=== PATIENT | male | born 1960 | race Caucasian/White ===

== ENCOUNTER 2022-01-18 06:11 | Day surgery (SDC) | payer BC, SELFPAY ==
[2022-01-18] VITALS (13 sets, daily range): BP systolic 113–142; BP diastolic 57–89; PULSE 67–83; RESP 14–16; TEMP 36.4–36.6; O2SAT 96–99; BMI 24.5
[2022-01-18] MEDS: SODIUM CHLORIDE 0.9 % (FLUSH) 10 ML SYRINGE IVF (06:44)
[2022-01-18] MEDS: LACTATED RINGERS 1000 ML 1,000 ML 100 ML IV ×2 (06:45→08:20)
[2022-01-18] MEDS: CEFAZOLIN 2 GM INJ IVP (07:40)
[2022-01-18] MEDS: BUPIVACAINE 0.25% 30 ML INJECTION (08:35)
--- NOTE | 2022-01-18 08:54 | P.GSOP_ITS ---
Operative Note Date of procedure: 01/18/22 Type of Procedure: 1. Laparoscopic bilateral inguinal hernia repair with mesh. Procedure Description: After discussing the risks and benefits of the procedure, the patient signed informed consent.? The operative site was marked and the patient was brought to the operating room and placed on the operating table in supine position.? Care was taken to pad the patient's pressure points.?? The patient was then intubated by anesthesia.?? The operative site was then prepped and draped in the usual sterile fashion.? A time-out was then performed. An infraumbilical skin incision was made with a scalpel and subcutaneous tissues were dissected with electrocautery. Anterior sheath was incised with electrocautery and rectus muscle was retracted laterally. A 12 mm [employer] dissector system was introduced into the incision and advanced over the posterior sheath. Preperitoneal space was dissected with manually insufflating air under direct visualization. Once the tissues were dissected, the balloon was deflated and removed.? A laparoscopic balloon was placed into preperitoneal space and balloon was inflated. Preperitoneal space was insufflated with air. No bleeding was identified upon examination of preperitoneal space. We then placed two 5 mm ports suprapubically under direct visualization. ? The preperitoneal tissues were bluntly dissected with graspers.? The pubic bone was identified and? cleared from preperitoneal tissue.?? Inferior epigastrics on right?side were retracted towards the abdominal wall.?? Spermatic cord? was identified and dissected circumferentially.? This was done bluntly. The direct inguinal hernia space was identified. The peritoneal edge was noted to be adjacent to the right spermatic cord with evidence of right indirect inguinal hernia. The indirect hernia sac was dissected bluntly from the spermatic cord.? Arterial bleeding was noted on the right side at the inferior edge of the pubic bone. This was controlled with cautery.? When adequate space was developed for mesh placement, we proceeded with dissection left side. A direct left inguinal hernia space was noted. Peritoneum on the left side was adjacent to the spermatic cord and was going into the inguinal canal. This peritoneal edge was then dissected bluntly away from the spermatic cord. Spermatic cord was dissected circumferentially. When adequate space for mesh placement was developed on the left side, a Dextile mesh was used and positioned over the spermatic cord. The mesh was tacked medially and laterally with?tacks.? A right-sided Parietex mesh was then used for repair on the right side. The mesh was positioned around the right spermatic cord. This was tacked with tacks medially and laterally. Additional local anesthetic was injected directly into pre-peritoneal space. ? The space was deflated under direct visualization and mesh appeared to be still lying in a good position. The ports were then removed. Anterior sheath was then closed with a running 0-0 vicryl suture. Skin was closed with 4-0 monocryl using subcuticular stitch. Steri strips were applied over the laparoscopic?incisions. ? All counts were correct at the end of the case. Patient tolerated the procedure well and was transferred to PACU without any complications. ? Findings: Indirect and direct hernia on the right and the left. Implants: Dextile mesh on the left, Parietex mesh on the right. Anesthesia: GETA Surgeon: Chapin Stubbs MD Estimated blood loss (mL): 5 Condition: stable Disposition: PACU
--- NOTE | 2022-01-18 09:05 | W.ANESCHARGE ---
Anesthesia Charges Start Date/Time Anesthesia Start Date: 01/18/22 Anesthesia Start Time: 07:30 Stop Date/Time Anesthesia Stop Date: 01/18/22 Anesthesia Stop Time: 09:01 Summary Emergency: No
--- NOTE | 2022-01-18 09:33 | W.ANESCHARGE ---
Anesthesia Charges Start Date/Time Anesthesia Start Date: 01/18/22 Anesthesia Start Time: 07:30 Stop Date/Time Anesthesia Stop Date: 01/18/22 Anesthesia Stop Time: 09:01 Summary Emergency: No
[2022-01-18] MEDS: HYDROCODONE-ACETAMIN 5-325 MG 1 TAB PO (10:10)
== END 2022-01-18 11:03 | disposition home or self-care (01) ==
PROVIDERS: Visit Provider Surgery
PROC: (CPT 49650; principal; 2022-01-18 07:30)
DX: K40.20 Bilateral inguinal hernia, without obstruction or gangrene, not specified as recurrent (principal)
CPT/HCPCS: 49650; 00840; 00860; A9270; C1781; J0330; J0690; J1100; J1885; J2250; J2405; J2704; J3010; J3490; J7120